=== PATIENT | female | born 1965 | race Caucasian/White ===

== ENCOUNTER 2022-06-09 12:04 | Emergency (ER) | payer OTHER, SELFPAY ==
[~2022-06-09] VITALS: Ht 152.4 cm; Wt 49.1 kg
[2022-06-09] MEDS ORDERED: ALBU8.5H (12:35)
[2022-06-09] MEDS ORDERED: PRED20TA (12:35)
[2022-06-09] MEDS ORDERED: CEFD300C41 (12:35)
[2022-06-09] MEDS ORDERED: COMBIVENT RESPIMAT 100-20MCG INHALER 4GM INH STA (16:03)
[2022-06-09] MEDS ORDERED: methylPREDNISolone 125MG 2ML VIAL IM ONE (16:10)
[2022-06-09 17:02] VITALS: BP 109/62
[2022-06-09] MEDS ORDERED: predniSONE 20 MG TAB PO ONE (17:10)
== END 2022-06-09 18:02 | disposition home or self-care (01) ==
LOC: M ED 12:04
DX: J44.1 Chronic obstructive pulmonary disease with (acute) exacerbation (principal); J98.01 Acute bronchospasm; Z87.09 Personal history of other diseases of the respiratory system; F17.200 Nicotine dependence, unspecified, uncomplicated; Z82.5 Family history of asthma and other chronic lower respiratory diseases; Z83.3 Family history of diabetes mellitus; Z88.1 Allergy status to other antibiotic agents

== ENCOUNTER 2022-08-14 11:02 | Emergency (ER) | payer BC, OTHER, SELFPAY ==
[~2022-08-14] VITALS: Ht 152.4 cm; Wt 50.2 kg
[~2022-08-14 11:02] MED LIST: ALBU8.5H; CEFD300C41; PRED20TA
[2022-08-14] MEDS ORDERED: NORCO, ANEXSIA 5/325MG TABLET (HYDROcodone/ACETAMINOPHEN) PO ONE (13:05)
[2022-08-14] MEDS ORDERED: HYDR-3713 PO (13:05)
[2022-08-14 13:21] VITALS: BP 112/60
[2022-08-14 13:49] LABS: RSV AMPLIFICATION NEGATIVE (NEGATIVE)
[2022-08-15] MEDS ORDERED: PERC5TAB12 PO (17:29)
== END 2022-08-14 14:01 | disposition home or self-care (01) ==
LOC: M ED 11:02
DX: S52.531A Colles' fracture of right radius, initial encounter for closed fracture (principal); S52.601A Unspecified fracture of lower end of right ulna, initial encounter for closed fracture; W00.0XXA Fall on same level due to ice and snow, initial encounter; Y92.410 Unspecified street and highway as the place of occurrence of the external cause; J44.9 Chronic obstructive pulmonary disease, unspecified; Z88.1 Allergy status to other antibiotic agents; F17.290 Nicotine dependence, other tobacco product, uncomplicated

== ENCOUNTER 2022-08-15 14:11 | Day surgery (SDC) | payer SELFPAY ==
[~2022-08-15] VITALS: Ht 165.1 cm; Wt 46.7 kg
[~2022-08-15 14:11] MED LIST changes: +HYDR-3713 PO
[2022-08-15] MEDS ORDERED: ROPIvacaine 0.5% 30ML VIAL PN ONE (14:40)
[2022-08-15] MEDS ORDERED: LIDOCAINE 1% SDV 5ML VIAL PN ONE (14:40)
[2022-08-15] MEDS ORDERED: MIDAZOLAM INJ 2MG/2ML VIAL IV PRN (14:40)
[2022-08-15] MEDS ORDERED: fentaNYL 100 MCG/2 ML INJECTION IV PRN (14:40)
[2022-08-15] MEDS ORDERED: LIDOCAINE 2% 100MG/5ML SDV (FOR ANES.) As Ordered ONE (15:41)
[2022-08-15] MEDS ORDERED: propofoL 200 MG/20 ML VIAL As Ordered ONE (15:41)
[2022-08-15] MEDS ORDERED: ONDANSETRON 4MG 2ML VIAL As Ordered ONE (15:41)
[2022-08-15] MEDS ORDERED: fentaNYL 250 MCG/5 ML INJECTION As Ordered ONE (15:42)
[2022-08-15] MEDS ORDERED: MIDAZOLAM INJ 2MG/2ML VIAL As Ordered ONE (15:42)
[2022-08-15] MEDS ORDERED: ALBUTEROL 6.7GM INHALER **FOR ANES. CART/OMNICELL ONLY As Ordered ONE (15:54)
[2022-08-15] MEDS ORDERED: PHENYLephrine 500MCG 5ML (100MCG/ML) SYRINGE As Ordered ONE (16:09)
[2022-08-15] MEDS ORDERED: ceFAZolin 2 GM/D5W 50 ML IV BAG As Ordered ONE (16:16)
[2022-08-15] MEDS ORDERED: ePHEDrine SULFATE 25 MG/5 ML(5MG/ML) SYRINGE As Ordered ONE ×2 (16:32→16:55)
[2022-08-15] MEDS ORDERED: ACETAMINOPHEN 1000MG 100ML IV BAG As Ordered ONE (16:38)
[2022-08-15] MEDS ORDERED: KETOROLAC 60MG 2ML VIAL As Ordered ONE (17:08)
[2022-08-15] MEDS ORDERED: PERC5TAB12 PO (17:29)
[2022-08-15 18:42] VITALS: BP 116/62
== END 2022-08-15 19:01 | disposition home or self-care (01) ==
LOC: M SDC 14:11
PROVIDERS: ATTEND Orthopaedic Surgery Hand Surgery
DX: S52.531A Colles' fracture of right radius, initial encounter for closed fracture (principal); W01.0XXA Fall on same level from slipping, tripping and stumbling without subsequent striking against object, initial encounter; Y92.89 Other specified places as the place of occurrence of the external cause; J44.9 Chronic obstructive pulmonary disease, unspecified; F17.210 Nicotine dependence, cigarettes, uncomplicated; Z79.52 Long term (current) use of systemic steroids
CPT/HCPCS: 25607; 76000; C1713; J0131; J0690; J1100; J1885; J2250; J2370; J2405; J3010

== ENCOUNTER → 2022-08-21 | Outpatient (CLI) | payer SELFPAY ==
[~2022-08-21] MED LIST changes: +PERC5TAB12 PO
== END ==
LOC: M SOG 08:03
PROVIDERS: ATTEND Orthopaedic Surgery Hand Surgery
DX: S52.531A Colles' fracture of right radius, initial encounter for closed fracture (principal); W18.30XA Fall on same level, unspecified, initial encounter; Y92.009 Unspecified place in unspecified non-institutional (private) residence as the place of occurrence of the external cause

== ENCOUNTER → 2022-09-18 | Outpatient (CLI) | payer SELFPAY | LOC: M SOG 09:41 | PROVIDERS: ATTEND Physician Assistant | DX: Z47.89 Encounter for other orthopedic aftercare (principal) ==

== ENCOUNTER 2022-10-22 17:17 | Emergency (ER) | payer SELFPAY ==
[~2022-10-22] VITALS: Ht 152.4 cm; Wt 48.9 kg
[2022-10-22 17:17] VITALS: BP 109/62
[2022-10-22] MEDS ORDERED: AUGMENTIN 875 MG TAB PO ONE (18:35)
[2022-10-22] MEDS ORDERED: AMOX875T2 PO (18:36)
== END 2022-10-22 18:54 | disposition home or self-care (01) ==
LOC: M ED 17:17
DX: K02.9 Dental caries, unspecified (principal); K08.89 Other specified disorders of teeth and supporting structures; J44.9 Chronic obstructive pulmonary disease, unspecified; F17.200 Nicotine dependence, unspecified, uncomplicated

== ENCOUNTER → 2022-10-30 | Outpatient (CLI) | payer SELFPAY ==
[~2022-10-30] MED LIST changes: +AMOX875T2 PO
== END ==
LOC: M SOG 08:43
PROVIDERS: ATTEND Physician Assistant
DX: Z47.89 Encounter for other orthopedic aftercare (principal); S52.501D Unspecified fracture of the lower end of right radius, subsequent encounter for closed fracture with routine healing

== ENCOUNTER → 2024-10-25 | Outpatient (REF) ==
[~2024-10-25] MED LIST changes: +CEFD1CAP9; -CEFD300C41
== END ==
LOC: M LAB 12:13
PROVIDERS: ATTEND Family Medicine
DX: Z00.00 Encounter for general adult medical examination without abnormal findings (principal)